=== PATIENT | female | born 1985 | race African-American/Black ===

== ENCOUNTER 2023-08-10 17:43 | Observation (INO) | payer BC ==
[2023-08-10 18:33] LABS: #Monocytes 0.1 10x3/uL (0.0-1.1); #Neutrophils 6.9 10x3/uL (1.5-8.4); %Basophils 0.3 % (0.0-2.0); %Lymphocytes 11.7 % (18.0-47.0); %Monocytes 0.6 % (0.0-10.0); %Neutrophils 87.1 % (40.0-75.0); Hematocrit 33.8 % (34.9-44.5); Hemoglobin 11.2 g/dL (12.0-15.5); Mean Corpuscular HGB CONC 33.1 g/dL (32.0-36.0); Mean Corpuscular Hemoglobin 26.4 pg (27.0-33.0); Mean Corpuscular Volume 79.5 fl (81.6-98.3); Mean Platelet Volume 9.3 fl (7.4-10.4); Platelet Count 426 10x3/uL (150-450); RBC Distribution Width 13.2 % (11.5-14.5); Red Blood Cell (RBC) Count 4.25 10x6/uL (3.90-5.03); White Blood Cell (WBC) Count 7.9 10x3/uL (3.5-10.5)
[2023-08-10 18:48] LABS: ALT (SGPT) 39 U/L (8-55); AST (SGOT) 29 U/L (5-34); Albumin 4.3 g/dL (3.5-5.0); Alkaline Phosphatase 78 U/L (40-110); Anion Gap 19 mmol/L (10-20); BUN (Urea Nitrogen) 9 mg/dL (7.0-18.7); Bilirubin, Total 0.3 mg/dL (0.2-1.2); Calc. Creatinine Clearance 0 mL/min (70-130); Calcium 9.4 mg/dL (7.8-10.44); Carbon Dioxide 16 mmol/L (22-29); Chloride 107 mmol/L (98-107); Estimated GFR 75; Globulin 3.2 g/dL (2.4-3.5); Glucose 161 mg/dL (70-105); Potassium 3.3 mmol/L (3.5-5.1); Protein, Total 7.5 g/dL (6.0-8.3); Sodium 139 mmol/L (136-145)
[2023-08-10] MEDS ORDERED: Ipratropium/Albuterol 3 ML NEB ONE (19:43)
[2023-08-10] MEDS ORDERED: Glucagon 1 MG/ML KIT IM PRN (19:54)
[2023-08-10] MEDS ORDERED: Dextrose 5% in Water 1,000 ML IV PRN (19:54)
[2023-08-10] MEDS ORDERED: Dextrose 50% Abboject 50 ML SYRINGE SLOW IVP PRN (19:54)
[2023-08-10] MEDS ORDERED: Senokot S 8.6-50 MG TAB PO PRN (19:55)
[2023-08-10] MEDS ORDERED: Ondansetron PF 4 MG/2 ML Vial IVP PRN (19:55)
[2023-08-10] MEDS ORDERED: Calcium Carbonate 500 MG ChewTAB PO PRN (19:55)
[2023-08-10] MEDS ORDERED: Acetaminophen 325 MG TAB PO PRN (19:55)
[2023-08-10] MEDS ORDERED: Guaifenesin DM 100-10/5 ML UDCUP PO PRN (19:55)
[2023-08-10] MEDS ORDERED: Ipratropium/Albuterol 3 ML NEB NEB PRN (19:57)
[2023-08-10] MEDS ORDERED: Diazepam 5 MG TAB PO PRN (19:58)
[2023-08-10] MEDS ORDERED: Lactated Ringer's 1,000 ML IV SCH (20:00)
[2023-08-10 21:31] VITALS: BMI 32.2
[2023-08-10] MEDS ORDERED: DULoxetine 30 MG CAP PO SCH (22:45)
[2023-08-10] MEDS ORDERED: Potassium Chloride 20 MEQ TAB PO SCH (22:45)
[2023-08-10] MEDS ORDERED: Famotidine/PF 20 mg/2ml Vial SLOW IVP SCH (22:45)
[2023-08-10] MEDS ORDERED: Fluticasone Propionate Nasal Spray 16 gm Bottle NASAL SCH (23:00)
[2023-08-10] MEDS: Lisinopril 20 MG TAB PO SCH (23:08)
[2023-08-10] MEDS: diphenhydrAMINE 50 MG/ML VIAL IVP SCH (23:08)
[2023-08-10] MEDS: traZODone HCl 50 MG TAB PO PRN (23:09)
[2023-08-10] MEDS ORDERED: tiZANidine HCl 4 MG TAB PO SCH (23:15)
[2023-08-10] MEDS: methylPREDNISolone Sod Succ 40 MG VIAL IVP SCH (23:28)
[2023-08-11 03:24] LABS: Anion Gap 13 mmol/L (10-20); BUN (Urea Nitrogen) 8 mg/dL (7.0-18.7); Calc. Creatinine Clearance 126 mL/min (70-130); Calcium 9.1 mg/dL (7.8-10.44); Carbon Dioxide 20 mmol/L (22-29); Chloride 109 mmol/L (98-107); Estimated GFR 103; Glucose 171 mg/dL (70-105); Potassium 4.7 mmol/L (3.5-5.1); Sodium 137 mmol/L (136-145)
[2023-08-11] MEDS: methylPREDNISolone Sod Succ 40 MG VIAL IVP SCH ×4 (06:42→23:50)
[2023-08-11] MEDS: Mometasone/Formoterol 200/5 60 PUFF INH SCH ×2 (07:46→20:30)
[2023-08-11] MEDS: Famotidine/PF 20 mg/2ml Vial SLOW IVP SCH ×2 (08:59→21:03)
[2023-08-11] MEDS ORDERED: Loratadine 10 MG TAB PO SCH (09:00)
[2023-08-11] MEDS ORDERED: Fluticasone Propionate Nasal Spray 16 gm Bottle NASAL SCH (09:00)
[2023-08-11] MEDS: Lisinopril 20 MG TAB PO SCH (09:00)
[2023-08-11] MEDS ORDERED: tiZANidine HCl 4 MG TAB PO PRN (09:10)
[2023-08-11] MEDS ORDERED: Famotidine/PF 20 mg/2ml Vial SLOW IVP SCH (09:11)
[2023-08-11] MEDS: valACYclovir 500 MG TAB PO SCH (09:22)
[2023-08-11] MEDS: HumaLOG 300 UNITS/3 ML VIAL SC PRN ×3 (11:48→23:51)
[2023-08-11] MEDS: diphenhydrAMINE 50 MG/ML VIAL IVP SCH (11:49)
[2023-08-11] MEDS ORDERED: hydrOXYzine 25 MG TAB PO PRN (12:12)
[2023-08-11] MEDS ORDERED: Diazepam 5 MG TAB PO PRN (12:14)
[2023-08-11] MEDS ORDERED: dilTIAZem ER 60 MG CAP PO SCH (14:15)
[2023-08-11] MEDS: Fluticasone Propionate Nasal Spray 16 gm Bottle NASAL SCH (16:44)
[2023-08-11] MEDS ORDERED: Oxymetazoline HCl 0.05% ( 15 ML ) NASAL PRN (17:44)
[2023-08-11 18:32] VITALS: TEMP 98.2
[2023-08-11] MEDS ORDERED: DULoxetine 30 MG CAP PO SCH ×2 (21:00→22:00)
[2023-08-11] MEDS: dilTIAZem ER 60 MG CAP PO SCH (21:03)
[2023-08-11] MEDS: Loratadine 10 MG TAB PO SCH (21:04)
[2023-08-11] MEDS: traZODone HCl 50 MG TAB PO PRN (22:12)
[2023-08-12] MEDS: methylPREDNISolone Sod Succ 40 MG VIAL IVP SCH (05:59)
[2023-08-12] MEDS: HumaLOG 300 UNITS/3 ML VIAL SC PRN (06:24)
[2023-08-12] MEDS: Mometasone/Formoterol 200/5 60 PUFF INH SCH (08:12)
[2023-08-12] MEDS: Famotidine/PF 20 mg/2ml Vial SLOW IVP SCH (08:19)
[2023-08-12] MEDS: Loratadine 10 MG TAB PO SCH (08:19)
[2023-08-12] MEDS: valACYclovir 500 MG TAB PO SCH (08:20)
[2023-08-12] MEDS: dilTIAZem ER 60 MG CAP PO SCH (08:20)
[2023-08-12] MEDS: Fluticasone Propionate Nasal Spray 16 gm Bottle NASAL SCH (08:24)
[2023-08-12 08:36] VITALS: BP 140/64
[2023-08-12] MEDS ORDERED: Lisinopril 20 MG TAB PO SCH (09:00)
[2023-08-12] MEDS ORDERED: guaiFENesin ER 600 MG TAB PO SCH (09:00)
[2023-08-12 19:59] LABS: Hemoglobin A1c 5.8 % (4.0-6.0)
[2023-08-12] MEDS ORDERED: DULoxetine 30 MG CAP PO SCH (21:00)
== END 2023-08-12 10:41 | disposition home or self-care (01) ==
LOC: CSHERS 17:43 → INTOOBSV 21:27 → CSHIMCU 21:27
PROVIDERS: ADMIT Student in an Organized Health Care Education/Training Program; ATTEND Family Medicine
DX: J45.901 Unspecified asthma with (acute) exacerbation (principal); I10 Essential (primary) hypertension; R73.03 Prediabetes; F41.9 Anxiety disorder, unspecified; F32.A Depression, unspecified; G43.909 Migraine, unspecified, not intractable, without status migrainosus; K21.9 Gastro-esophageal reflux disease without esophagitis; E87.6 Hypokalemia; F90.9 Attention-deficit hyperactivity disorder, unspecified type; G47.30 Sleep apnea, unspecified; I82.409 Acute embolism and thrombosis of unspecified deep veins of unspecified lower extremity; Z91.018 Allergy to other foods; Z91.013 Allergy to seafood; Z91.012 Allergy to eggs; Z88.5 Allergy status to narcotic agent; Z90.89 Acquired absence of other organs; Z87.59 Personal history of other complications of pregnancy, childbirth and the puerperium; Z91.011 Allergy to milk products
CPT/HCPCS: 36415; 36416; 71045; 80048; 80053; 83036; 85025; 93005; 93010; 94640; 94660; 94664; 94760; 94762; 96374; 96375; 96376; G0378; J1200; J1815; J2920; J7120; J7620; S0028